=== PATIENT | male | born 1985 | race Asian ===

== ENCOUNTER 2017-12-28 11:28 | Emergency (ER) | payer OTHER ==
[~2017-12-28] VITALS: Ht 180.3 cm; Wt 81.6 kg
[2017-12-28 11:40] VITALS: TEMP 97.8
[2017-12-28 12:15] VITALS: BP 118/74
== END 2017-12-28 12:15 | disposition home or self-care (01) ==
LOC: ED 11:28
DX: J01.90 Acute sinusitis, unspecified (principal)
CPT/HCPCS: 99281